=== PATIENT | female | born 2000 | race Caucasian/White ===

== ENCOUNTER 2025-06-28 08:09 | Inpatient (IN) | payer OTHER ==
[~2025-06-28] VITALS: Ht 162.6 cm; Wt 104.3 kg
[2025-06-28] VITALS (8 sets, daily range): BP systolic 114–149; BP diastolic 50–89; O2SAT 98
[2025-06-28] MEDS ORDERED: AMPICILLIN SODIUM 2,000 MG VIAL ONE (08:12)
[2025-06-28] MEDS ORDERED: OXYTOCIN 20 UNITS/500ML RL PIGGYBAG IV ONE (08:13)
[2025-06-28] MEDS ORDERED: RINGERS SOLUTION,LACTATED 1,000 ML IV SCH (08:30)
[2025-06-28] MEDS ORDERED: AMPICILLIN SODIUM 2,000 MG VIAL IV ONE (08:30)
[2025-06-28] MEDS ORDERED: OXYTOCIN 500 ML IV SCH (08:45)
[2025-06-28] MEDS ORDERED: PRENATA CHEWAB1 EACH PO (09:12)
[2025-06-28 09:51] LABS: BASO % 0.4 % (0.1-1.2); EOS # 0.09 (0.04-0.54); EOS % 1.1 % (0.7-7.0); LYMPH # 1.58 (1.18-3.74); LYMPH % 19.9 % (19.3-53.1); MEAN PLATELET VOLUME 12.40 fl (9.4-12.4); MONO # 0.75 (0.24-0.82); MONO % 9.4 % (4.7-12.5); NEUT # 5.47 (1.56-6.13); NEUT % 68.8 % (34.0-71.1); RED CELL DISTRIBUTION WIDTH 13.7 % (11.6-14.4)
[2025-06-28 09:55] LABS: URINE APPEARANCE Clear; URINE BILIRRUBIN Negative (NEGATIVE); URINE BLOOD Moderate; URINE COLOR Yellow; URINE GLUCOSE Negative (NEGATIVE); URINE KETONE Negative (NEGATIVE); URINE LEUKOCYTE Negative; URINE NITRATE Negative; URINE UROBILINOGEN 0.2 E.U./dl
[2025-06-28 09:58] LABS: URINE BACTERIA 354.6 uL (0.0-1933); URINE EPITHELIAL CELLS 34.4 uL (0.0-38.8); URINE RBC 146.6 uL (0.0-20.8); URINE WBC 15.0 uL (0.0-23.2)
[2025-06-28 10:22] LABS: INR < 0.93
[2025-06-28 10:28] LABS: ALT/SGPT 13.0 U/L (12-78); AST/SGOT 11.0 U/L (15-37); BILIRUBIN TOTAL 0.17 mg/dL (0.3-1.2); BUN CREA RATIO 23.0 (7.0-25.0); CREATININE SERUM 0.53 mg/dL (0.55-1.02); GFR 138.38; GLOBULINA 3.5 G/DL (2.4-3.5); GLUCOSE FASTING 69.0 mg/dL (65-100); OSMOLALITY SERUM 281.0 MOSM/KG (275-295); URINE CAST 1.13 uL (0.0-1.40); URINE PROTEIN 100 (NEGATIVE)
[2025-06-28] MEDS ORDERED: CHLORHEXIDINE GLUCONATE 120 ML BOTTLE TOP ONE ×2 (10:49→11:45)
[2025-06-28] MEDS ORDERED: LIDOCAINE HCL 1% 10ML VIAL ONE (10:49)
[2025-06-28] MEDS ORDERED: ERYTHROMYCIN BASE OPHT 1GM EACH TUBE OP ONE ×2 (10:49→11:45)
[2025-06-28] MEDS ORDERED: OXYTOCIN 20 UNITS/1000ML RL PIGGYBAG IV ONE (10:49)
[2025-06-28] MEDS ORDERED: ACETAMINOPHEN 500 MG GEL..CAP PO PRN (11:45)
[2025-06-28] MEDS ORDERED: OXYTOCIN 1,000 ML IV SCH (11:45)
[2025-06-28] MEDS ORDERED: BENZOCAINE/MENTHOL 90 ML BOTTLE TOP SCH ×2 (13:00→17:00)
[2025-06-28] MEDS ORDERED: AMPICILLIN SODIUM 1,000 MG VIAL IV SCH (13:00)
[2025-06-28] MEDS ORDERED: HYDROCORTISONE 2.5% 30 GM TUBE RECTAL SCH (13:00)
[2025-06-29] VITALS: BP 124/79
[2025-06-29 06:26] LABS: BASO % 0.2 % (0.1-1.2); EOS # 0.04 (0.04-0.54); EOS % 0.5 % (0.7-7.0); LYMPH # 1.78 (1.18-3.74); LYMPH % 20.2 % (19.3-53.1); MEAN PLATELET VOLUME 12.80 fl (9.4-12.4); MONO # 0.62 (0.24-0.82); MONO % 7.0 % (4.7-12.5); NEUT # 6.30 (1.56-6.13); NEUT % 71.5 % (34.0-71.1); RED CELL DISTRIBUTION WIDTH 13.8 % (11.6-14.4)
[2025-06-29 08:55] VITALS: BP 131/85
[2025-06-29] MEDS ORDERED: POVIDONE-IODINE 118 ML BOTT TOP ONE (10:02)
[2025-06-29] MEDS ORDERED: CEFAZOLIN SODIUM 1,000 MG VIAL ONE (10:47)
[2025-06-29] MEDS ORDERED: SUGAMMADEX SODIUM 200 MG/2 ML VIAL IV ONE (11:19)
[2025-06-29] MEDS ORDERED: OxyCODONE HCL 5 MG TABLET (ROXICODONE) PO PRN (12:00)
[2025-06-29 13:53] VITALS: BP 114/67
[2025-06-29 19:01] VITALS: BP 139/77
[2025-06-30] VITALS: BP 102/61
[2025-06-30 02:01] LABS: BASO % 0.2 % (0.1-1.2); EOS # 0.08 (0.04-0.54); EOS % 1.0 % (0.7-7.0); LYMPH # 1.76 (1.18-3.74); LYMPH % 21.3 % (19.3-53.1); MEAN PLATELET VOLUME 11.80 fl (9.4-12.4); MONO # 0.45 (0.24-0.82); MONO % 5.4 % (4.7-12.5); NEUT # 5.92 (1.56-6.13); NEUT % 71.7 % (34.0-71.1); RED CELL DISTRIBUTION WIDTH 14.1 % (11.6-14.4)
[2025-06-30 02:55] LABS: LYMPHOCYTE MAN 21.0 %; MONOCYTE MAN 5.0 %; NEUTROPHILS MAN 74.0 %
[2025-06-30 13:01] VITALS: BP 134/84
[2025-06-30 16:00] VITALS: BP 127/80
[2025-06-30] MEDS ORDERED: PRENATA CHEWAB1 EACH PO (17:56)
[2025-06-30] MEDS ORDERED: IBUPROFEN800 MG PO (17:56)
== END 2025-06-30 19:08 | disposition home or self-care (01) | DRG 796 ==
LOC: LDR 08:09 → OB/GYN 08:09
PROVIDERS: ADMIT Specialist; ATTEND Specialist
PROC: 10E0XZZ Delivery of Products of Conception, External Approach (ICD-10-PCS; principal; 2025-06-28)
PROC: 4A1HXCZ Monitoring of Products of Conception, Cardiac Rate, External Approach (ICD-10-PCS; 2025-06-28)
PROC: 0UB70ZZ Excision of Bilateral Fallopian Tubes, Open Approach (ICD-10-PCS; 2025-06-29)
DX: O69.81X0 Labor and delivery complicated by cord around neck, without compression, not applicable or unspecified (principal); O60.14X0 Preterm labor third trimester with preterm delivery third trimester, not applicable or unspecified; Z37.0 Single live birth; Z3A.35 35 weeks gestation of pregnancy; Z30.2 Encounter for sterilization